=== PATIENT | male | born 1970 | race Two or more races ===

== ENCOUNTER 2024-04-27 23:31 | Inpatient (IN) | payer OTHER ==
[~2024-04-27] VITALS: Ht 177.8 cm; Wt 90.7 kg
--- NOTE | 2024-04-27 23:38 | NUR ---
PACIENTE ALERTA Y ORIENTADO X3 EL MISMO ES TRANSFERIDO DESDE [facility] ACEPTADO POR CIRSVITLANAO DR. BERMUDEZ. PACIENTE REFIERE DOLOR ABDOMINAL.
[2024-04-27] MEDS ORDERED: CIPROFLOXACIN IN 5 % DEXTROSE 200 ML IV SCH (23:42)
[2024-04-27] MEDS ORDERED: MORPHINE SULFATE 4 MG/ML CARTRIDGE IV PRN (23:45)
[2024-04-27] MEDS ORDERED: ONDANSETRON HCL 4 MG in 0.9 % SODIUM CHLORIDE 50 ML IV PRN (23:45)
[2024-04-27] MEDS ORDERED: ACETAMINOPHEN 500 MG GEL..CAP PO PRN (23:45)
[2024-04-27] MEDS ORDERED: 0.9 % SODIUM CHLORIDE 1,000 ML IV SCH (23:45)
[2024-04-28] MEDS ORDERED: METRONIDAZOLE/SODIUM CHLORIDE 100 ML IV SCH (01:00)
[2024-04-28 02:05] LABS: ERYTHROCYTE SEDIMENTATION RATE 47 mm/hr
[2024-04-28 02:13] LABS: HEMATOCRIT 40.8 % (39.0-48.0); HEMOGLOBIN 13.8 g/dL (13-16.00); MEAN CELL VOLUME 89.3 fL (80.0-100.00); MEAN CORPUSCULAR HEMOGLOBIN 30.1 pg (27.00-32.0); MEAN CORPUSCULAR HGB CONC 33.8 g/dl (32.0-36.0); PLATELET COUNT 273 K/uL (150-450); RED BLOOD COUNT 4.57 M/uL (4.00-6.00); RED CELL DISTRIBUTION WIDTH 13.6 % (11.5-14.5)
[2024-04-28 02:36] LABS: INR 1.06; PARTIAL THROMBOPLASTIN TIME 28.8 SECONDS (22.0-34.0); PROTHROMBIN TIME 11.5 SECONDS (9.0-11.5)
[2024-04-28 02:42] LABS: ALBUMIN 2.8 gm/dL (3.4-5.0); BILIRUBIN TOTAL 0.57 mg/dL (0.3-1.2); CALCIUM 8.9 mg/dL (8.5-10.1); CREATININE SERUM 1.01 mg/dL (0.70-1.30); GFR 77.88; GLOBULINA 4.4 G/DL (2.4-3.5); POTASSIUM 4.05 mEq/L (3.5-5.1); TOTAL PROTEIN 7.2 gm/dL (6.4-8.2)
[2024-04-28 03:22] LABS: URINE APPEARANCE Clear; URINE BILIRRUBIN Negative (NEGATIVE); URINE BLOOD Negative; URINE COLOR Yellow; URINE GLUCOSE Negative (NEGATIVE); URINE KETONE Negative (NEGATIVE); URINE LEUKOCYTE Negative; URINE NITRATE Negative; URINE PROTEIN Negative (NEGATIVE); URINE UROBILINOGEN 0.2 E.U./dl
[2024-04-28 03:42] LABS: URINE BACTERIA 1.2 uL (0.0-1933); URINE EPITHELIAL CELLS 0.3 uL (0.0-38.8); URINE RBC 1.1 uL (0.0-20.8); URINE WBC 0.1 uL (0.0-23.2)
[2024-04-28 08:00] VITALS: BP 148/85; O2SAT 98
[2024-04-28] MEDS ORDERED: FAMOTIDINE/PF 20 MG in 0.9 % SODIUM CHLORIDE 8 ML IV PUSH SCH (09:00)
[2024-04-28] MEDS ORDERED: ENOXAPARIN SODIUM 40 MG/0.4 ML SYRINGE SUBCUTANEO SCH (09:00)
[2024-04-28 17:19] VITALS: BP 140/94; O2SAT 100
[2024-04-29] VITALS: BP 116/76; O2SAT 96
[2024-04-29 07:17] LABS: HEMATOCRIT 41.5 % (39.0-48.0); HEMOGLOBIN 13.7 g/dL (13-16.00); MEAN CELL VOLUME 88.8 fL (80.0-100.00); MEAN CORPUSCULAR HEMOGLOBIN 29.3 pg (27.00-32.0); PLATELET COUNT 291 K/uL (150-450); RED BLOOD COUNT 4.67 M/uL (4.00-6.00); RED CELL DISTRIBUTION WIDTH 12.8 % (11.5-14.5)
[2024-04-29 07:40] LABS: CALCIUM 9.1 mg/dL (8.5-10.1); CREATININE SERUM 1.18 mg/dL (0.70-1.30); GFR 65.08; POTASSIUM 4.77 mEq/L (3.5-5.1)
[2024-04-29 08:00] VITALS: BP 149/88; O2SAT 97
[2024-04-29 17:13] VITALS: BP 134/84; O2SAT 96
[2024-04-30 01:18] VITALS: BP 140/73; O2SAT 100
[2024-04-30] MEDS ORDERED: GUAIFENESIN 200 MG/10 ML BLIST.PACK PO SCH (06:00)
[2024-04-30 08:00] VITALS: BP 135/78; O2SAT 96
[2024-04-30] MEDS ORDERED: fentaNYL CITRATE 50 MCG/ML AMPUL IV PUSH ONE (14:15)
[2024-04-30] MEDS ORDERED: MIDAZOLAM HCL 2 MG/2 ML VIAL IV PUSH ONE (14:15)
[2024-04-30 20:17] VITALS: BP 118/73; O2SAT 96
[2024-04-30] MEDS ORDERED: KETOROLAC TROMETHAMINE 30 MG VIAL IM PRN (20:30)
[2024-05-01 00:50] VITALS: BP 105/65; O2SAT 98
[2024-05-01 08:00] VITALS: BP 133/81; O2SAT 95
[2024-05-01 16:00] VITALS: BP 148/84; O2SAT 96
[2024-05-02 00:30] VITALS: BP 125/80; O2SAT 98
[2024-05-02 07:26] LABS: HEMATOCRIT 41.5 % (39.0-48.0); HEMOGLOBIN 14.1 g/dL (13-16.00); MEAN CELL VOLUME 88.6 fL (80.0-100.00); MEAN CORPUSCULAR HEMOGLOBIN 30.1 pg (27.00-32.0); MEAN CORPUSCULAR HGB CONC 33.9 g/dl (32.0-36.0); PLATELET COUNT 272 K/uL (150-450); RED BLOOD COUNT 4.69 M/uL (4.00-6.00); RED CELL DISTRIBUTION WIDTH 13.2 % (11.5-14.5)
[2024-05-02 07:33] LABS: CALCIUM 8.9 mg/dL (8.5-10.1); CREATININE SERUM 1.25 mg/dL (0.70-1.30); GFR 60.89; POTASSIUM 4.83 mEq/L (3.5-5.1)
[2024-05-02 08:00] VITALS: BP 151/69; O2SAT 96
[2024-05-02 16:00] VITALS: BP 118/72; O2SAT 98
[2024-05-03 00:20] VITALS: BP 126/76; O2SAT 97
[2024-05-03 07:46] LABS: CALCIUM 8.3 mg/dL (8.5-10.1); CREATININE SERUM 1.1 mg/dL (0.70-1.30); GFR 70.57; POTASSIUM 4.34 mEq/L (3.5-5.1)
[2024-05-03 12:49] VITALS: BP 127/75; O2SAT 100
[2024-05-03 18:15] VITALS: BP 112/78; O2SAT 95
[2024-05-04] VITALS: BP 112/72; O2SAT 99
[2024-05-04] MEDS ORDERED: PSEUDOEPHEDRINE HCL 60 MG TABLET PO SCH (06:00)
[2024-05-04 09:46] VITALS: BP 117/73; O2SAT 96
[2024-05-05] MEDS ORDERED: PSEUDOEPHEDRINE HCL 60 MG TABLET PO SCH (08:00)
== END 2024-05-04 17:07 | disposition home or self-care (01) | DRG 373 ==
LOC: ER 23:31 → SURH 23:45
PROVIDERS: General Practice; ADMIT Student in an Organized Health Care Education/Training Program; ATTEND Student in an Organized Health Care Education/Training Program
PROC: BW21YZZ Computerized Tomography (CT Scan) of Abdomen and Pelvis using Other Contrast (ICD-10-PCS; 2024-04-28)
PROC: 0W9G30Z Drainage of Peritoneal Cavity with Drainage Device, Percutaneous Approach (ICD-10-PCS; principal; 2024-04-30)
PROC: BW21YZZ Computerized Tomography (CT Scan) of Abdomen and Pelvis using Other Contrast (ICD-10-PCS; 2024-05-04)
DX: K35.33 Acute appendicitis with perforation, localized peritonitis, and gangrene, with abscess (principal); J10.1 Influenza due to other identified influenza virus with other respiratory manifestations; B96.20 Unspecified Escherichia coli [E. coli] as the cause of diseases classified elsewhere; B95.2 Enterococcus as the cause of diseases classified elsewhere; B96.89 Other specified bacterial agents as the cause of diseases classified elsewhere